=== PATIENT | female | born 1985 | race Caucasian/White ===

== ENCOUNTER 2019-10-19 21:50 | Emergency (ER) | payer MEDICAID ==
[~2019-10-19] VITALS: Ht 162.6 cm; Wt 100.0 kg
[2019-10-19 21:58] VITALS: BP 145/79
[2019-10-20] MEDS ORDERED: penicillin V potassium 500mg tablet PO ONE (01:35)
[2019-10-20] MEDS ORDERED: HYDR-4353 PO (01:39)
[2019-10-20] MEDS ORDERED: PENI500T2 PO (01:39)
== END 2019-10-20 01:48 | disposition home or self-care (01) ==
LOC: ER 21:50
DX: K02.9 Dental caries, unspecified (principal); F17.200 Nicotine dependence, unspecified, uncomplicated; Z72.89 Other problems related to lifestyle
CPT/HCPCS: 99283